=== PATIENT | male | born 1990 | race Hispanic/Latino ===

== ENCOUNTER 2024-01-25 20:22 | Emergency (ER) | payer OTHER ==
[~2024-01-25] VITALS: Ht 165.1 cm; Wt 73.9 kg
[2024-01-25 20:37] VITALS: BP 126/82; PULSE 70; RESP 20; TEMP 98.3; O2SAT 97
[2024-01-25 20:48] LABS: BASOPHILS # (AUTO) 0.05 K/uL (0.00-0.20); BASOPHILS % (AUTO) 0.6 % (0.0-5.0); EOSINOPHILS # (AUTO) 0.51 K/uL (0.00-0.70); EOSINOPHILS % (AUTO) 6.6 % (0.0-8.0); HEMATOCRIT 39.2 % (42-54); IMMATURE GRANULOCYTE ABSOLUTE 0.01 K/uL (0-1); LYMPHOCYTES # (AUTO) 2.8 K/uL (1.0-4.8); LYMPHOCYTES % (AUTO) 35.7 % (21.0-51.0); MEAN CORPUSCULAR HEMOGLOBIN 29.7 pg (27.0-33.0); MEAN CORPUSCULAR HGB CONC 35.2 g/dL (32.0-36.0); MEAN CORPUSCULAR VOLUME 84.3 fL (79-99); MONOCYTES # (AUTO) 0.7 K/uL (0.1-1.0); MONOCYTES % (AUTO) 8.7 % (3.0-13.0); NEUTROPHILS # (AUTO) 3.8 K/uL (1.8-7.7); NEUTROPHILS % (AUTO) 48.3 % (40.0-77.0); PLATELET COUNT (AUTO) 294 K/uL (130-400); RED BLOOD CELL COUNT(AUTO) 4.65 MIL/uL (4.50-6.20); WHITE BLOOD COUNT (AUTO) 7.8 K/uL (4.8-10.8)
[2024-01-25] MEDS: ketOROlac 15MG/ML VIAL (15MG/ML) IV ONE (20:48)
[2024-01-25 21:14] LABS: B-TYPE NATRIURETIC PEPTIDE 7 pg/mL (0-100)
[2024-01-25] MEDS ORDERED: KETO10 PO (21:19)
[2024-01-25] MEDS: Solu-medROL 125MG VIAL IVP ONE (21:31)
[2024-01-25 21:33] LABS: CREATININE 1.1 mg/dL (0.5-1.3); POTASSIUM 3.8 mmol/L (3.5-5.1)
[2024-01-25 22:01] LABS: AMPHET/METH SCREEN,URINE NEGATIVE (NEGATIVE); BARBITURATE SCREEN, URINE NEGATIVE (NEGATIVE); BENZODIAZEPINES SCREEN,URINE NEGATIVE (NEGATIVE); CANNABINOID SCREEN,URINE NEGATIVE (NEGATIVE); COCAINE SCREEN,URINE NEGATIVE (NEGATIVE); OPIATE SCREEN,URINE NEGATIVE (NEGATIVE); PHENCYCLIDINE SCREEN,URINE NEGATIVE (NEGATIVE)
[2024-01-25] MEDS ORDERED: AZIT250T9 PO (23:13)
[2024-01-25] MEDS: AZITHROMYCIN 250 MG TABLET PO ONE (23:22)
== END 2024-01-25 23:37 | disposition home or self-care (01) ==
LOC: EDH 20:22
DX: M94.0 Chondrocostal junction syndrome [Tietze] (principal); R07.89 Other chest pain; R91.8 Other nonspecific abnormal finding of lung field; J18.9 Pneumonia, unspecified organism
CPT/HCPCS: 99285; 96374; 71045; 96375; 84484 ×2; 80048; 83880; 80305; 85025; 36415; 93005; J2919; J1885